=== PATIENT | female | born 1965 | race Caucasian/White ===

== ENCOUNTER 2017-05-18 18:35 | Emergency (ER) | payer OTHER ==
[~2017-05-18] VITALS: Ht 165.1 cm; Wt 65.0 kg
[2017-05-18 20:17] VITALS: BP 144/65; PULSE 93; RESP 16; TEMP 97.9; O2SAT 98
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
[2017-05-18] MEDS ORDERED: LORazepam 1 MG TAB PO ONE (22:45)
[2017-05-18 22:48] LABS: AUTOMATED NEUTROPHIL # 4.2 TH/MM3 (1.8-7.7); BASOPHIL # 0.1 TH/MM3 (0-0.2); EOSINOPHIL % 0.1 % (0.0-4.0); HEMATOCRIT 34.6 % (35.0-46.0); LYMPHOCYTE # 1.1 TH/MM3 (1.0-4.8); MEAN CELL VOLUME 101.8 FL (80.0-100.0); MEAN CORPUSCULAR HEMOGLOBIN 35.3 PG (27.0-34.0); MEAN CORPUSCULAR HGB CONC 34.7 % (32.0-36.0); MEAN PLATELET VOLUME 7.7 FL (7.0-11.0); MONO % 9.7 % (0.0-8.0); MONOCYTE # 0.6 TH/MM3 (0-0.9); NEUT % 70.2 % (16.0-70.0); PLATELET COUNT 56 TH/MM3 (150-450); RED CELL DISTRIBUTION WIDTH 15.2 % (11.6-17.2)
[2017-05-18 23:06] VITALS: BP 129/60; PULSE 111; RESP 18
[2017-05-18 23:15] LABS: BICARBONATE 25.4 MEQ/L (21.0-32.0); CALCIUM 8.6 MG/DL (8.5-10.1); CREATININE 0.46 MG/DL (0.50-1.00)
[2017-05-19 00:41] LABS: AMORPHOUS SEDIMENT, URINE RARE; BILIRUBIN, URINE SMALL (NEG); BLOOD, URINE SMALL (NEG); GLUCOSE,URINE NEG (NEG); HYALINE CAST, URINE 1 /lpf (RARE); KETONE, URINE 80 mg/dL (NEG); MUCUS URINE FEW /lpf (OCC); NITRITE,URINE NEG (NEG); SQUAMOUS EPITHELIAL CELL URINE 18 /hpf (0-5); URINE COLOR YELLOW (YELLW/STRAW); URINE LEUKOCYTE ESTERASE NEG (NEG)
[2017-05-19 02:29] VITALS: BP 129/71; PULSE 107; RESP 18
[2017-05-19] MEDS ORDERED: ALPR.25 PO (03:09)
[2017-05-19 06:20] VITALS: BP 124/65; PULSE 95; RESP 18
[2017-05-19] MEDS ORDERED: ALPRAZolam 0.25 MG TAB PO ONE (10:45)
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
--- NOTE | 2017-05-19 13:00 | PD ---
Physical Exam Time Seen by Provider: 12:[address] Downing has evaluated the patient, lifted Coronel act and the patient for discharge. Data Data Last Documented VS Vital Signs Date Time Temp Pulse Resp B/P (MAP) Pulse Ox O2 Delivery O2 Flow Rate FiO2 05/19/17 06:20 95 18 124/65 (84) Room Air 05/18/17 20:17 97.9 98 Orders Orders Complete Blood Count With Diff (05/18/17 20:41) Basic Metabolic Panel (Bmp) (05/18/17 20:41) Drug Screen, Random Urine (05/18/17 20:41) Alcohol (Ethanol) (05/18/17 20:41) Urinalysis - C+S If Indicated (05/18/17 20:41) Psych Screen (05/18/17 20:41) Lorazepam (Ativan) (05/18/17 22:45) Diet Regular Basic (05/19/17 Breakfast) Alprazolam (Xanax) (05/19/17 10:45) Diet Regular Basic (05/19/17 Lunch) Labs Laboratory Tests Test 05/18/17 21:55 05/19/17 00:19 White Blood Count 6.0 TH/MM3 Red Blood Count 3.40 MIL/MM3 Hemoglobin 12.0 GM/DL Hematocrit 34.6 % Mean Corpuscular Volume 101.8 FL Mean Corpuscular Hemoglobin 35.3 PG Mean Corpuscular Hemoglobin Concent 34.7 % Red Cell Distribution Width 15.2 % Platelet Count 56 TH/MM3 Mean Platelet Volume 7.7 FL Neutrophils (%) (Auto) 70.2 % Lymphocytes (%) (Auto) 19.0 % Monocytes (%) (Auto) 9.7 % Eosinophils (%) (Auto) 0.1 % Basophils (%) (Auto) 1.0 % Neutrophils # (Auto) 4.2 TH/MM3 Lymphocytes # (Auto) 1.1 TH/MM3 Monocytes # (Auto) 0.6 TH/MM3 Eosinophils # (Auto) 0.0 TH/MM3 Basophils # (Auto) 0.1 TH/MM3 CBC Comment AUTO DIFF Differential Comment AUTO DIFF CONFIRMED Platelet Estimate LOW Platelet Morphology Comment NORMAL Blood Urea Nitrogen 9 MG/DL Creatinine 0.46 MG/DL Random Glucose 82 MG/DL Calcium Level 8.6 MG/DL Sodium Level 141 MEQ/L Potassium Level 3.5 MEQ/L Chloride Level 105 MEQ/L Carbon Dioxide Level 25.4 MEQ/L Anion Gap 11 MEQ/L Estimat Glomerular Filtration Rate 143 ML/MIN Ethyl Alcohol Level 337 MG/DL Urine Color YELLOW Urine Turbidity HAZY Urine pH 6.0 Urine Specific [place] 1.022 Urine Protein 100 mg/dL Urine Glucose (UA) NEG mg/dL Urine Ketones 80 mg/dL Urine Occult Blood SMALL Urine Nitrite NEG Urine Bilirubin SMALL Urine Urobilinogen 4.0 MG/DL Urine Leukocyte Esterase NEG Urine RBC 1 /hpf Urine WBC 1 /hpf Urine Squamous Epithelial Cells 18 /hpf Urine Amorphous Sediment RARE Urine Hyaline Casts 1 /lpf Urine Mucus FEW /lpf Microscopic Urinalysis Comment CULT NOT INDICATED Urine Opiates Screen NEG Urine Barbiturates Screen NEG Urine Amphetamines Screen NEG Urine Benzodiazepines Screen POS Urine Cocaine Screen NEG Urine Cannabinoids Screen NEG MDM Supervised Visit with KELY: No Narrative Course Dr. Downing has evaluated the patient, pedroed Berna potter and the patient for discharge. Patient contracts safety. Denies suicidal or homicidal ideations. Patient will be provided community resource packet to [facility] for follow-up. Has friends and family for support. Patient is medically cleared for discharge. Diagnosis Primary Impression: Adjustment disorder with mixed disturbance of emotions and conduct Referrals: JATINDER (Out patient) [facility] Primary Care Physician Psychiatrist Carine POTTER Behavioral Patient Instructions: General Instructions, Mood Disorders (ED) Additional Instruction: Contract safety to your self and others Follow-up with psychiatry Follow-up with primary care provider Follow-up with Kishore Parks Return to the emergency department immediately with worsening of symptoms Med/Other Pt SpecificInfo: No Change to Meds, No Meds Exist/No RX given Disposition: 01 DISCHARGE HOME Condition: Stable KrissyjassiPreeti GARZA May 19, 2017 13:00
[2017-05-19 13:50] VITALS: BP 124/65; TEMP 97.9
== END 2017-05-19 13:54 | disposition home or self-care (01) ==
LOC: NEDAMB 18:35 → NEPJ 05-19 13:54
DX: F43.25 Adjustment disorder with mixed disturbance of emotions and conduct (principal); F43.23 Adjustment disorder with mixed anxiety and depressed mood; F43.10 Post-traumatic stress disorder, unspecified; Z79.899 Other long term (current) drug therapy
CPT/HCPCS: 80048; 80307; 81001; 85025; 99284

== ENCOUNTER 2017-06-22 11:44 | Emergency (ER) | payer SELFPAY ==
[2017-06-22 12:02] VITALS: BP 138/72; PULSE 112; RESP 18; TEMP 99.1; O2SAT 92
[2017-06-22] MEDS ORDERED: hydrOXYzine PAMOATE 25 MG CAP PO ONE (15:15)
[2017-06-22 16:20] VITALS: BP 142/75; PULSE 99; RESP 18; TEMP 98.9; O2SAT 94
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
== END 2017-06-22 19:05 | disposition home or self-care (01) ==
LOC: NEPJ 11:44
DX: F10.129 Alcohol abuse with intoxication, unspecified (principal); F41.9 Anxiety disorder, unspecified; F43.10 Post-traumatic stress disorder, unspecified; D64.9 Anemia, unspecified; I10 Essential (primary) hypertension; Z88.5 Allergy status to narcotic agent; Z87.19 Personal history of other diseases of the digestive system
CPT/HCPCS: 80053; 80307; 84443; 85025; 99283

== ENCOUNTER 2017-11-12 02:43 | Inpatient (IN) | payer OTHER ==
[~2017-11-12] VITALS: Ht 157.5 cm; Wt 56.5 kg
[~2017-11-12 02:43] MED LIST: ALPR.5 PO; LACT10SO PO
[2017-11-12] MEDS ORDERED: LORazepam 1 MG TAB PO ONE (04:30)
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
[2017-11-12 06:03] VITALS: BP 141/72; PULSE 99; RESP 16; TEMP 99.3; O2SAT 95
[2017-11-12] MEDS ORDERED: ACETAMINOPHEN 325 MG TAB PO PRN (13:45)
[2017-11-12] MEDS ORDERED: LORazepam 2 MG TAB PO PRN (13:45)
[2017-11-12] MEDS ORDERED: MAGNESIUM HYDROXIDE SUSP 30 ML CUP PO PRN (13:45)
[2017-11-12] MEDS ORDERED: NICOTINE 21 MG/24 HR PATCH T-DERMAL PRN (13:45)
[2017-11-12] MEDS ORDERED: ALUMINUM/MAGNESIUM/SIMETH 30 ML CUP PO PRN (13:45)
[2017-11-12] MEDS ORDERED: FLUMAZENIL 0.5 MG/5 ML VIAL IV PUSH PRN (13:45)
[2017-11-12] MEDS ORDERED: PILL SPLITTER OTHER PRN (13:45)
[2017-11-12] MEDS ORDERED: LORazepam 2 MG/ML VIAL IV PUSH PRN ×4 (13:45)
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
[2017-11-12 15:57] LABS: FOLATE 10.8 NG/ML (3.1-17.5)
--- NOTE | 2017-11-12 16:17 | RADRPT ---
EXAM DATE/TIME: 11/12/2017 14:59 [facility] COMPARISON: No previous studies available for comparison. INDICATIONS : Evaluate common bile duct. MEDICAL HISTORY : Hypertension. Pancreatitis. Cirrhosis. Pancreatic cancer. SURGICAL HISTORY : Hysterectomy. Bone marrow biopsy. Skull surgery with pins and screws. ENCOUNTER: Initial ACUITY: 2 days PAIN SCORE: 8/10 LOCATION: Right upper quadrant MEASUREMENTS: LIVER: 14.4 cm length COMMON DUCT: 5 mm RIGHT KIDNEY: 11.3 x 5.6 x 4.9 cm FINDINGS: LIVER: Liver demonstrates diffusely increased echogenicity with lobulated contour consistent with cirrhosis. Small anechoic cyst in the inferior right lobe measuring up to 2.2 cm. There is trace amount of asci alesha primarily around the dome of the liver. There is hepatofugal flow in the portal vein. COMMON DUCT: No intraluminal mass or stone visualized. GALLBLADDER: Gallbladder is mildly distended with small amount of sludge. No pericholecystic fluid. Gallbladder wa ll is borderline measuring up to 3 mm. PANCREAS: The visualized portions are within normal limits. RIGHT KIDNEY: No evidence of hydronephrosis, stone, or mass. CONCLUSION: 1. Cirrhotic appearing liver with trace ascites and hepatofugal flow in the portal vein consistent wi th portal hypertension. 2. Gallbladder sludge and/or gallbladder wall prominence. This finding is commonly seen in patient's with chronic liver disease. 3. Common bile duct is normal in caliber without focal abnormality. Evans Geiger MD on November 12, 2017 at 16:06 Board Certified Radiologist. This report was verified electronically.
[2017-11-12 16:38] VITALS: BP 159/84; PULSE 97; RESP 17; TEMP 98.6; O2SAT 99
[2017-11-12] MEDS: LACTULOSE SYRUP 20 GM/30 ML CUP PO SCH ×2 (18:20→21:05)
[2017-11-12 20:28] VITALS: BP 158/79; PULSE 103; RESP 16; O2SAT 98
[2017-11-12] MEDS ORDERED: MIRTAZAPINE 15 MG TAB PO SCH (21:00)
[2017-11-12] MEDS ORDERED: REMOVE OLD NICODERM (NICOTINE) PATCH T-DERMAL PRN (21:00)
[2017-11-12] MEDS: LORazepam 1 MG TAB PO PRN (21:05)
[2017-11-12] MEDS: PRAZOSIN HCL 1 MG CAP PO SCH (21:06)
[2017-11-12] MEDS ORDERED: ONDANSETRON HCL 4 MG/2 ML VIAL ONE (21:29)
[2017-11-12] MEDS ORDERED: ONDANSETRON HCL 4 MG/2 ML VIAL IM ONE (21:30)
[2017-11-13 05:03] VITALS: BP 129/61; PULSE 85; RESP 16; TEMP 98.4; O2SAT 96
[2017-11-13] MEDS: MULTIVITAMINS/MINERALS THERAPEUTIC TAB PO SCH (09:26)
[2017-11-13] MEDS: THIAMINE HCL 100 MG TAB PO SCH (09:26)
[2017-11-13] MEDS: LACTULOSE SYRUP 20 GM/30 ML CUP PO SCH ×4 (09:26→21:33)
[2017-11-13] MEDS: FOLIC ACID 1 MG TAB PO SCH (09:26)
[2017-11-13 09:49] LABS: AUTOMATED NEUTROPHIL # 2.5 TH/MM3 (1.8-7.7); BASOPHIL # 0.1 TH/MM3 (0-0.2); BASOPHIL % 1.5 % (0.0-2.0); EOSINOPHIL # 0.1 TH/MM3 (0-0.4); EOSINOPHIL % 2.6 % (0.0-4.0); HEMATOCRIT 28.6 % (35.0-46.0); LYMPH % 31.4 % (9.0-44.0); LYMPHOCYTE # 1.5 TH/MM3 (1.0-4.8); MEAN CELL VOLUME 102.2 FL (80.0-100.0); MEAN CORPUSCULAR HEMOGLOBIN 35.9 PG (27.0-34.0); MEAN CORPUSCULAR HGB CONC 35.1 % (32.0-36.0); MEAN PLATELET VOLUME 8.4 FL (7.0-11.0); MONO % 10.2 % (0.0-8.0); MONOCYTE # 0.5 TH/MM3 (0-0.9); NEUT % 54.3 % (16.0-70.0); PLATELET COUNT 42 TH/MM3 (150-450); RED BLOOD COUNT 2.79 MIL/MM3 (4.00-5.30); RED CELL DISTRIBUTION WIDTH 14.4 % (11.6-17.2); WHITE BLOOD COUNT 4.6 TH/MM3 (4.0-11.0)
[2017-11-13 09:54] LABS: ALBUMIN 2.7 GM/DL (3.4-5.0); AST (GOT) 114 U/L (15-37); BICARBONATE 26.6 MEQ/L (21.0-32.0); BLOOD UREA NITROGEN 6 MG/DL (7-18); CALCIUM 8.3 MG/DL (8.5-10.1); CHLORIDE 106 MEQ/L (98-107); CHOLESTEROL 239 MG/DL (120-200); CREATININE 0.73 MG/DL (0.50-1.00); GLOMERULAR FILTRATION RATE 84 ML/MIN (>89); GLUCOSE,RANDOM 110 MG/DL (74-106); MAGNESIUM 1.7 MG/DL (1.5-2.5); SODIUM (NA) 140 MEQ/L (136-145)
[2017-11-13 10:05] LABS: ALKALINE PHOSPHATASE 277 U/L (45-117); ALT (GPT) 42 U/L (10-53); CHOLESTEROL/ HDL RATIO 2.84 RATIO; FREE T4 1.16 NG/DL (0.76-1.46); HDL CHOLESTEROL 83.9 MG/DL (40.0-60.0); LDL CHOLESTEROL 139 MG/DL (0-99); PHOSPHORUS 3.6 MG/DL (2.5-4.9); TOTAL BILIRUBIN ADULT 7.7 MG/DL (0.2-1.0); TOTAL PROTEIN 6.5 GM/DL (6.4-8.2); TRIGLYCERIDES 81 MG/DL (42-150)
[2017-11-13] MEDS ORDERED: POTASSIUM CHLORIDE 20 MEQ CONTROLLED RELEASE TAB PO ONE ×2 (10:30→13:00)
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
[2017-11-13 14:46] LABS: HEMOGLOBIN A1C 3.5 % (4.3-6.0)
[2017-11-13 18:01] VITALS: BP 167/82; PULSE 85; RESP 16; TEMP 98.6; O2SAT 99
[2017-11-13] MEDS: PRAZOSIN HCL 1 MG CAP PO SCH (21:33)
[2017-11-13] MEDS: MIRTAZAPINE 15 MG TAB PO SCH (21:33)
[2017-11-14 06:07] VITALS: BP 129/60; PULSE 87; RESP 16; TEMP 98; O2SAT 97
[2017-11-14] MEDS: FOLIC ACID 1 MG TAB PO SCH (08:42)
[2017-11-14] MEDS: MULTIVITAMINS/MINERALS THERAPEUTIC TAB PO SCH (08:43)
[2017-11-14] MEDS: THIAMINE HCL 100 MG TAB PO SCH (08:43)
[2017-11-14] MEDS: LACTULOSE SYRUP 20 GM/30 ML CUP PO SCH ×2 (08:43→18:00)
[2017-11-14] MEDS: LORazepam 1 MG TAB PO PRN (09:52)
[2017-11-14] MEDS ORDERED: POTASSIUM CHLORIDE 10 MEQ CONTROLLED RELEASE TAB PO ONE (12:00)
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
[2017-11-14 18:12] VITALS: BP 169/76; PULSE 99; RESP 18; TEMP 98.8; O2SAT 99
[2017-11-14] MEDS: MIRTAZAPINE 15 MG TAB PO SCH (21:24)
[2017-11-14] MEDS: PRAZOSIN HCL 1 MG CAP PO SCH (21:24)
[2017-11-15 05:35] VITALS: BP 126/61; PULSE 85; RESP 16; TEMP 97.6; O2SAT 97
[2017-11-15] MEDS: FOLIC ACID 1 MG TAB PO SCH (08:31)
[2017-11-15] MEDS: THIAMINE HCL 100 MG TAB PO SCH (08:31)
[2017-11-15] MEDS: LACTULOSE SYRUP 20 GM/30 ML CUP PO SCH ×2 (08:31→13:27)
[2017-11-15] MEDS: MULTIVITAMINS/MINERALS THERAPEUTIC TAB PO SCH (08:31)
[2017-11-15] MEDS: LORazepam 1 MG TAB PO PRN (08:48)
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
[2017-11-15 11:13] LABS: HEMATOCRIT 28.8 % (35.0-46.0); MEAN CELL VOLUME 103.2 FL (80.0-100.0); MEAN CORPUSCULAR HEMOGLOBIN 35.7 PG (27.0-34.0); MEAN CORPUSCULAR HGB CONC 34.6 % (32.0-36.0); MEAN PLATELET VOLUME 8.6 FL (7.0-11.0); PLATELET COUNT 60 TH/MM3 (150-450); RED BLOOD COUNT 2.79 MIL/MM3 (4.00-5.30); RED CELL DISTRIBUTION WIDTH 14.8 % (11.6-17.2); WHITE BLOOD COUNT 5.3 TH/MM3 (4.0-11.0)
--- NOTE | 2017-11-15 12:34 | HHI.PR ---
Subjective Remarks Follow-up visit for alcohol dependence, elevated LFTs, HTN, hypokalemia, and elevated ammonia. Patient is seen and examined in her room in no acute distress. She denies any fevers, chills, nausea, vomiting, abdominal pain, shortness of breath, cough, chest pains or shakiness. She reports that she is having diarrhea and states that she had a take a shower because she was unable to make it to the bathroom. She voices no other acute complaints or concerns for today other than inquiring about when her discharge would be with I would be able to facilitate that. Objective Vitals Vital Signs Date Time Temp Pulse Resp B/P (MAP) Pulse Ox O2 Delivery O2 Flow Rate FiO2 11/15/17 05:35 97.6 85 16 126/61 (82) 97 11/14/17 18:12 98.8 99 18 169/76 (107) 99 I/O 11/14/17 11/14/17 11/14/17 11/15/17 11/15/17 11/15/17 07:00 15:00 23:00 07:00 15:00 23:00 Intake Total 360 ml Balance 360 ml Intake Oral 360 ml Result Diagram: 11/15/17 1000 11/14/17 0955 Imaging Last Impressions Gall Bladder Ultrasound 11/12/17 0000 Signed Impressions: Service Date/Time: October 14:59 - CONCLUSION: 1. Cirrhotic appearing liver with trace ascites and hepatofugal flow in the portal vein consistent with portal hypertension. 2. Gallbladder sludge and/or gallbladder wall prominence. This finding is commonly seen in patient's with chronic liver disease. 3. Common bile duct is normal in caliber without focal abnormality. Evans Geiger MD Objective Remarks GENERAL: Well-developed well-nourished female in no acute distress. SKIN: Cool and dry. Jaundice. HEAD: Atraumatic. Normocephalic. EYES: Pupils equal round and reactive. Scleral jaundice. No injection or drainage. ENT: Nose without bleeding, purulent drainage. Airway patent. NECK: Trachea midline. CARDIOVASCULAR: Regular rate and rhythm without murmurs, gallops, or rubs. RESPIRATORY: Clear to auscultation. Breath sounds equal bilaterally. No wheezes , rales, or rhonchi. GASTROINTESTINAL: Abdomen soft, non-tender, nondistended. No guarding. Normal active bowel sounds. MUSCULOSKELETAL: Extremities without clubbing, cyanosis, or edema. No joint tenderness, effusion, or edema noted. NEUROLOGICAL: Awake and alert. Cranial nerves grossly intact. Moving all extremities, ambulating without assistive devices. Motor and sensory grossly within normal limits. Normal speech. A/P Problem List: (1) Chronic post-traumatic stress disorder (PTSD) ICD Code: F43.12 - Post-traumatic stress disorder, chronic (2) Alcohol dependence ICD Code: F10.20 - Alcohol dependence, uncomplicated (3) Alcohol intoxication ICD Code: F10.929 - Alcohol use, unspecified with intoxication, unspecified Status: Acute (4) Alcohol-induced mood disorder ICD Code: F10.94 - Alcohol use, unspecified with alcohol-induced mood disorder Status: Acute (5) Anxiety ICD Code: F41.9 - Anxiety disorder, unspecified Status: Acute Assessment and Plan 51-year-old female with past medical history significant for pancreatitis, alcohol abuse, PTSD, cirrhosis, anxiety, depression, and possible hypertension who was admitted to inpatient psychiatry after patient reported visual hallucinations as well as anxiety. [facility] has been consulted to assist with medical management. PTSD/anxiety -Treatment plan per primary team, greatly appreciated Alcohol dependence -Patient follows up with gastroenterology as outpatient. Once again reiterated the importance of alcohol cessation. -transitions manager rn following - Seizure precautions - CIWA - Folate 10.8, Thiamine 78 - continue PO folic acid, thiamine, and MVT Transaminitis/elevated bilirubin Elevated ammonia secondary to cirrhosis -Hepatitis panel negative -Gallbladder ultrasound completed on 11/12 reviewed, liver with diffusely increased echogenicity with lobulated contours consistent with cirrhosis. Trace ascites and hepatofugal flow in the protal vein consistent with portal hypertension. The gallbladder did imelda sludge and/or wall prominence, however this finding is consistent with cirrhotic liver disease per radiology repot. Common bile duct with no focal abnormality. - Elevated LFT's and ammonia are consistent with EtOH abuse. - Ammonia levels 47-->43-->18. Continues to have loose stools, will decrease lactulose to daily. Although patient does report taking lactulose at home every 6 hours on admission her ammonia level was 47, question compliance. Thrombocytopenia Macrocytic anemia -Patient reports that she was recently worked up by oncology as it was thought she had a cancer however this was ruled out. -Macrocytic anemia likely due to alcohol abuse, as well as low platelet count. Monitor for bleeding. -CBC from this morning reviewed. H&H stable PLT's 42--> 60 HTN, controlled with no medications - BP's stable Hypokalemia, acute -Potassium 3.4, 30 meq's of KCl provided p.o. -Recheck BMP tomorrow DVT prophylaxis- ambulating Discussed with patient that discharge would be up to psychiatry as there the primary attending. Discussed with patient and nurse. Problem Qualifiers (1) Alcohol dependence: Qualified Codes: F10.239 - Alcohol dependence with withdrawal, unspecified (2) Alcohol intoxication: Qualified Codes: F10.920 - Alcohol use, unspecified with intoxication, uncomplicated Leopoldo Cameron Nov 15, 2017 12:34
[2017-11-15 18:20] VITALS: BP 130/64; PULSE 82; RESP 18; TEMP 97.4; O2SAT 96
[2017-11-15] MEDS: PRAZOSIN HCL 1 MG CAP PO SCH (21:07)
[2017-11-15] MEDS: MIRTAZAPINE 15 MG TAB PO SCH (21:08)
[2017-11-16 06:30] VITALS: BP 134/60; PULSE 77; RESP 17; TEMP 98.7; O2SAT 98
[2017-11-16 08:58] LABS: BICARBONATE 24.9 MEQ/L (21.0-32.0); CALCIUM 8.2 MG/DL (8.5-10.1); CREATININE 0.6 MG/DL (0.50-1.00)
[2017-11-16] MEDS ORDERED: LACTULOSE SYRUP 20 GM/30 ML CUP PO SCH (09:00)
[2017-11-16] MEDS: THIAMINE HCL 100 MG TAB PO SCH (10:10)
[2017-11-16] MEDS: MULTIVITAMINS/MINERALS THERAPEUTIC TAB PO SCH (10:10)
[2017-11-16] MEDS: FOLIC ACID 1 MG TAB PO SCH (10:10)
--- NOTE | 2017-11-16 12:50 | HHI.PR ---
Subjective Remarks No complaints today. No evidence of withdrawal. Patient does not express any tremors or uncomfortable feelings. Objective Vital Signs Date Time Temp Pulse Resp B/P (MAP) Pulse Ox O2 Delivery O2 Flow Rate FiO2 11/16/17 06:30 98.7 77 17 134/60 (84) 98 11/15/17 18:20 97.4 82 18 130/64 (86) 96 Result Diagram: 11/15/17 1000 11/16/17 0740 Objective Remarks GENERAL: NAD, A&Ox3 HEAD: Normocephalic. NECK: Supple, trachea midline. No lymphadenopathy. EYES: No scleral icterus. No injection or drainage. CARDIOVASCULAR: Regular rate and rhythm without murmurs, gallops, or rubs. RESPIRATORY: Breath sounds equal bilaterally. No accessory muscle use. GASTROINTESTINAL: Abdomen soft, non-tender, nondistended. MUSCULOSKELETAL: No cyanosis, or edema. SKIN: Warm and dry. NEURO: No focal neurological deficitis. A/P Problem List: (1) Anxiety ICD Code: F41.9 - Anxiety disorder, unspecified Status: Acute (2) Chronic post-traumatic stress disorder (PTSD) ICD Code: F43.12 - Post-traumatic stress disorder, chronic (3) Alcohol dependence ICD Code: F10.20 - Alcohol dependence, uncomplicated (4) Alcohol intoxication ICD Code: F10.929 - Alcohol use, unspecified with intoxication, unspecified Status: Acute (5) Alcohol-induced mood disorder ICD Code: F10.94 - Alcohol use, unspecified with alcohol-induced mood disorder Status: Acute Assessment and Plan 51-year-old female admitted secondary to visual hallucinations as well as anxiety PTSD/anxiety Improved Management per psychiatry recommendations Alcohol dependence No delirium tremens Medically clear for discharge Transaminitis/elevated bilirubin Elevated ammonia secondary to cirrhosis Improving Follows an outpatient Thrombocytopenia Macrocytic anemia No progression Thrombocytes are improving Stable for follow-up as an outpatient Hypertension Continue baseline treatment Follow blood pressures Adjust treatments as needed Hypokalemia, acute Resolved DVT prophylaxis Continue ambulation Discharge planning Medically clear for discharge when cleared by psychiatry Problem Qualifiers (1) Alcohol dependence: Qualified Codes: F10.239 - Alcohol dependence with withdrawal, unspecified (2) Alcohol intoxication: Qualified Codes: F10.920 - Alcohol use, unspecified with intoxication, uncomplicated Rhett Squires MD Nov 16, 2017 12:50
[2017-11-16] MEDS ORDERED: THIA100 PO (15:01)
[2017-11-16] MEDS ORDERED: PRAZ1 PO (15:01)
[2017-11-16] MEDS ORDERED: Lactulose Liq PO (15:01)
[2017-11-16] MEDS ORDERED: FOLI1TAB6 PO (15:01)
[2017-11-16] MEDS ORDERED: MIRTA15 PO (15:01)
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
== END 2017-11-16 17:20 | disposition home or self-care (01) | DRG 897 ==
LOC: NEPJ 02:43 → NEDA 13:32 → H260 16:12
PROVIDERS: ADMIT Psychiatry & Neurology Psychiatry; ATTEND Psychiatry & Neurology Psychiatry
DX: F10.239 Alcohol dependence with withdrawal, unspecified (principal); D68.4 Acquired coagulation factor deficiency; D69.6 Thrombocytopenia, unspecified; F43.12 Post-traumatic stress disorder, chronic; F10.24 Alcohol dependence with alcohol-induced mood disorder; K74.60 Unspecified cirrhosis of liver; I10 Essential (primary) hypertension; F10.229 Alcohol dependence with intoxication, unspecified; R74.0 Nonspecific elevation of levels of transaminase and lactic acid dehydrogenase [LDH]; D53.9 Nutritional anemia, unspecified; E87.6 Hypokalemia; R44.1 Visual hallucinations; F41.9 Anxiety disorder, unspecified; F32.9 Major depressive disorder, single episode, unspecified; R19.7 Diarrhea, unspecified; Y90.8 Blood alcohol level of 240 mg/100 ml or more
CPT/HCPCS: 76705; 80048; 80053; 80061; 80074; 80307; 82140; 82607; 82746; 83036; 83735; 84100; 84132; 84425; 84439; 84443; 85025; 85027; 85610; 85730; 99283; 99285; J2405